=== PATIENT | male | born 1950 | race Caucasian/White ===

== ENCOUNTER 2017-12-23 09:55 | Emergency (ER) | payer BC, OTHER ==
--- NOTE | 2017-12-23 11:28 | EDPHY ---
H & P Time Seen by Provider: 12/23/17 10:25 HPI/ROS: CHIEF COMPLAINT: Fall, facial injury HISTORY OF PRESENT ILLNESS: 67-year-old male presents to the emergency department with facial injuries. The patient states that 4 o'clock this morning he got up and tripped over the dog and fell hitting the left side of his face. He did not lose consciousness. He denies a headache. He is complaining of pain in his nose as well as left side of his face. He did sustain an episode of epistaxis which has resolved. No neck or back pain. No chest pain or difficulty breathing. No dysphagia. No visual changes. REVIEW OF SYSTEMS: Constitutional: No fever, no chills. Eyes: No double or blurry vision. ENT: No sore throat. Respiratory: No cough, no shortness of breath. Cardiac: No chest pain. Gastrointestinal: No abdominal pain, vomiting or diarrhea. Genitourinary: No dysuria. Musculoskeletal: No neck or back pain. Skin: Abrasions. No rashes. Neurological: No headache. Past Medical/Surgical History: Negative Social History: Smoking Status: Never smoked Physical Exam: General Appearance: Alert, no distress. Mentating normally and answering questions appropriately. Eyes: Pupils equal and round. Extraocular motions are all intact. ENT: Mouth: Mucous membranes moist. Dried blood bilateral knee nare. Diffuse tenderness with palpation over the nasal bone as well as over the left maxillary sinus and left inferior orbit. There is ecchymosis noted to the inferior aspect of the left orbit. No evidence of septal hematoma. Respiratory: No wheezing, rhonchi, or rales, lungs are clear to auscultation. Cardiovascular: Regular rate and rhythm. Gastrointestinal: Abdomen is soft and nontender, no masses, no rebound or guarding, bowel sounds normal. Neurological: Alert and oriented x 3, cranial nerves II through XII grossly intact Skin: Superficial abrasions to the left lateral aspect of his nose as well as left lateral aspect of the nostril. There is no active bleeding noted. No suturable lacerations noted. Warm and dry, no rashes. Musculoskeletal: Nontender to palpate along the cervical, thoracic or lumbar spine. Neck is supple. Extremities: Full range of motion and no peripheral edema. Psychiatric: Patient is oriented X 3, there is no agitation. Constitutional: Initial Vital Signs Temperature (C) 37.0 C 12/23/17 10:03 Heart Rate 74 12/23/17 10:03 Respiratory Rate 16 12/23/17 10:03 Blood Pressure 117/78 12/23/17 10:03 O2 Sat (%) 97 12/23/17 10:03 O2 Delivery Mode Room Air Allergies/Adverse Reactions: Penicillins Allergy (Unknown, Verified 05/24/12 07:59) Home Medications: Medication Instructions Recorded NK [No Known Home Meds] 12/23/17 Medical Decision Making - Diagnostics Imaging Results: Imaging Impressions Head CT 12/23/17 10:46 Impression: Mildly displaced nasal bone fracture. Otherwise, unremarkable head CT. Imaging: Discussed imaging studies w/ call center agent Radiologist ED Course/Re-evaluation: 67-year-old male presents to the emergency department after mechanical fall at home. CT imaging reveals nasal bone fractures without other facial fractures. CT imaging of the brain is normal. Patient was given ENT referral. Encouraged use cool compresses and anti- inflammatories. The patient did not want his abrasions cleansed or dressed in the emergency department. His tetanus shot was updated. Differential Diagnosis: Head injury including but not limited to facial fractures, concussion, skull fracture, intraparenchymal contusion, subarachnoid, subdural and epidural hematoma. - Data Points Medications Given: Discontinued Medications Diphtheria/Tetanus/Acell Pertussis (Boostrix) 0.5 ml IM .ONCE ONE Stop: 12/23/17 11:33 Last Admin: 12/23/17 11:38 Dose: 0.5 ml Departure - Departure Disposition: Home, Routine, Self-Care Clinical Impression: Nasal bone fracture Qualifiers: Encounter type: initial encounter Fracture type: closed Qualified Code(s): S02.2XXA - Fracture of nasal bones, initial encounter for closed fracture Facial abrasion Qualifiers: Encounter type: initial encounter Qualified Code(s): S00.81XA - Abrasion of other part of head, initial encounter Condition: Good Instructions: Nasal Fracture (ED), Abrasion (ED), Acute Wounds (ED) Additional Instructions: Cool compresses. Anti-inflammatory such as ibuprofen 600 mg every 8 hr as needed for pain. Return to the emergency department if you develop headache, vomiting, altered mental status, or if you feel worse in any way. Follow up with ENT in 1 week. Referrals: Livan Marie MD [Primary Care Provider] - As per Instructions Jaime Goodman MD [Medical Doctor] - 5-7 days, call for appt. (ENT on-call)
[2017-12-23] MEDS ORDERED: TDAP ADULT 0.5 ML INJ (BOOSTRIX) IM ONE (11:32)
[2017-12-23 11:39] VITALS: BP 101/69
== END 2017-12-23 11:39 | disposition home or self-care (01) ==
DX: S02.2XXA Fracture of nasal bones, initial encounter for closed fracture (principal); S00.81XA Abrasion of other part of head, initial encounter; Z23 Encounter for immunization; W01.198A Fall on same level from slipping, tripping and stumbling with subsequent striking against other object, initial encounter; Y99.8 Other external cause status